=== PATIENT | male | born 2000 | race Caucasian/White ===

== ENCOUNTER 2021-06-28 14:00 | Emergency (ER) | payer OTHER, SELFPAY ==
[2021-06-28] VITALS (8 sets, daily range): BP systolic 118–134; BP diastolic 68–93; PULSE 51–66; RESP 14–18; TEMP 37; O2SAT 97–100
--- NOTE | ~2021-06-28 | XR_ITS ---
EXAMINATION: XR chest 2V EXAM DATE: 06/28/2021 14:21 INDICATION: Chest pain/SOB, sternal, left arm pain. TECHNIQUE: Frontal and lateral projections of the chest obtained and reviewed. There is no prior regina dy for comparison. FINDINGS: The lungs are clear. There are no pleural effusions. The cardiomediastinal silhouette is within normal limits. There is no pneumothorax suspected. The bones and soft tissues are unremarkab le. IMPRESSION: Normal chest x-ray exam. Reviewed, dictated and finalized at location A. [employer] IMPRESSION: Normal chest x-ray exam.
--- NOTE | 2021-06-28 14:03 | ECG_ITS ---
Measurements Intervals [place] Rate: 67 P: 48 WA: 153 QRS: 77 QRSD: 99 T: 42 QT: 355 QTc: 375 Interpretive Statements SINUS RHYTHM ST ELEVATION IN ANTEROLAT/INF LEADS, PROBABLY EARLY REPOLARIZATION BORDERLINE ECG Electronically Signed On 06-28-2021 15:24:37 [employer]ITION SERVICES MANAGER by Sabas Bae D.O.
[2021-06-28 14:42] LABS: Basophils Absolute Auto 0.1 K/mm3 (0.0-0.1); Basophils Percent Auto 0.6 % (0.2-1.2); Eosinophils Absolute Auto 0.1 K/mm3 (0-0.3); Eosinophils Percent Auto 0.7 % (0-4.4); Hematocrit 40.8 % (42.0-52.0); Hemoglobin 12.4 g/dL (14.0-18.0); Immature Granulocyte Absolute 0.08 K/mm3 (0.00-0.031); Immature Granulocyte Percent A 0.9 % (0-0.5); Lymphocytes Absolute Auto 2.52 K/mm3 (0.9-3.2); Lymphocytes Percent Auto 28.9 % (18.3-44.2); Mean Corpuscular HGB Conc 30.4 g/dl (32-36); Mean Corpuscular Hemoglobin 18.7 pg (26-34); Mean Corpuscular Volume 61.6 fl (80-100); Monocytes Absolute Auto 0.6 K/mm3 (0.1-0.6); Neutrophils Absolute Auto 5.4 K/mm3 (1.3-6.7); Neutrophils Percent Auto 61.9 % (45.5-73.1); Platelet Count Result 142 k/mm3 (150-375); Red Blood Count 6.62 M/mm3 (4.6-6.20); Red Cell Distribution Width 17.4 % (11.5-14.5); White Blood Count 8.7 K/mm3 (4.5-10.0)
[2021-06-28 15:37] LABS: Alanine Aminotransferase 14 U/L (4-50); Albumin Level 4.7 g/dL (3.5-5.1); Alkaline Phosphatase 64 U/L (38-126); Anion Gap 7 mmol/L (8-16); Aspartate Amino Transferase 22 U/L (17-59); Bilirubin,Total 0.8 mg/dL (0.2-1.3); Blood Urea Nitrogen 12 mg/dL (9-20); Calcium 9.7 mg/dL (8.4-10.2); Carbon Dioxide 28 mmol/L (22-30); Chloride 100 mmol/L (98-107); Estimated CRCL calculation 132 ml/min; Estimated Glomerular Filt Rate > 60; Glucose 94 mg/dL (65-110); Lipase 48 U/L (23-300); Potassium 4.2 mmol/L (3.4-5.0); Sodium 135 mmol/L (137-145)
[2021-06-28 15:48] LABS: Troponin I < 0.012 ng/mL (0.000-0.034)
[2021-06-28 18:48] LABS: INR 1.1; Prothrombin Time 14.3 Seconds (11.1-14.7)
[2021-06-28 18:49] LABS: Partial Thromboplastin Time 39.4 SECONDS (22.3-36.8)
[2021-06-28 18:58] LABS: Troponin I < 0.012 ng/mL (0.000-0.034)
[2021-06-28 19:32] LABS: D Dimer 0.27 ug/mL (<0.48)
--- NOTE | 2021-06-28 19:49 | ED.GENADULT ---
HPI - General Adult General Chief complaint: Chest Pain Stated complaint: Sent by doctor. Chest pain with inspriation. SOB. Time Seen by Provider: 06/28/21 17:51 Source: patient Mode of arrival: ambulatory Limitations: no limitations History of Present Illness HPI narrative: Patient is a 20-year-old male presenting with chief complaint of intermittent chest pain over the past 6 weeks. Patient reports that he noticed the pain more often when he is active. Patient reports that when it occurs it feels as if he cannot take a deep breath. Patient reports today it radiated into his jaw so his primary care told him to come to emergency department. Patient denies any syncopal episodes, palpitations, dizziness or neurological deficits. Patient denies history of PA or stroke. Patient reports that he does not have the pain presently. Patient denies any other symptoms or concerns. Related Data Home Medications Medication Instructions Recorded Confirmed No Home Medications 12/08/20 12/08/20 Allergies Allergy/AdvReac Type Severity Reaction Status Date / Time No Known Allergies Allergy Verified 06/28/21 17:58 Review of Systems Review of Systems: CONSTITUTIONAL: Denies fever, chills, or sweats. EYES: Denies visual changes, redness, or discharge. ENT: Denies rhinorrhea, congestion, sore throat, or otalgia. CARDIOVASCULAR: Reports intermittent chest pain denies palpitations, or edema. RESPIRATORY: Denies cough or dyspnea. GASTROINTESTINAL: Denies abdominal pain, nausea, vomiting, or diarrhea. GENITOURINARY: Denies dysuria or hematuria. SKIN: Denies rash or itching. MUSCULOSKELETAL: Denies back pain, joint pain, or myalgia. NEUROLOGIC: Denies headache, numbness, dizziness, or weakness. PSYCHIATRIC: Denies anxiety or depression. PMFSH Past Medical History Medical History Anxiety Family History Family History Father Asthma Diabetes mellitus Hypertension Mother Liver disease Social History Social History Smoking status: Never smoker Exam Narrative: GENERAL: Well-appearing, well-nourished, and in no acute distress. Does not appear to be in any discomfort or distress. HEAD: Normocephalic, atraumatic. EYES: PERRLA and EOMI. NECK: Supple. No adenopathy or masses. Range of motion intact. CHEST: Clear to auscultation. No respiratory distress. No wheezes rales or rhonchi HEART: Regular rate and rhythm. No murmur heard. Normal peripheral pulses. ABDOMEN: Soft, nontender, nondistended, normal active bowel sounds. EXTREMITIES: Normal range of motion. No edema. SKIN: Warm, dry, no rash. NEURO: No focal deficits. Alert and oriented x3. PSYCH: Normal mood and affect. Course Vital Signs Vital signs: Vital Signs Temperature 98.6 F 06/28/21 14:27 Pulse Rate 64 06/28/21 14:27 Respiratory Rate 17 06/28/21 14:27 Blood Pressure 125/93 H 06/28/21 14:27 Pulse Oximetry 97 06/28/21 14:27 Temperature 98.6 F 06/28/21 14:27 Pulse Rate 62 06/28/21 19:20 Respiratory Rate 18 06/28/21 19:20 Blood Pressure 119/79 06/28/21 19:20 Pulse Oximetry 100 06/28/21 19:20 Medical Decision Making MDM Narrative Medical decision making narrative: Patient is resting in bed comfortably. Patient is white blood cell count is normal. Patient troponin and D-dimer are normal. Patient EKG shows sinus rhythm with at 67 bpm. Patient states x-ray is normal. Patient admitted to follow-up with his primary care provider for medication management and possible cardiology referral. Patient chest pain seems atypical in his as well. Patient's vitals notable mainly he is not hypoxic, tachypneic or tachycardic. Patient has been offered Toradol for discomfort which he refused. Patient states that he is ready to be discharged home denies any other needs or con
== END 2021-06-28 20:25 | disposition home or self-care (01) ==
PROVIDERS: Emergency Provider Emergency Medicine; PCP Internal Medicine
DX: R07.89 Other chest pain (principal); R94.31 Abnormal electrocardiogram [ECG] [EKG]
CPT/HCPCS: 36415; 71046; 80053; 83690; 84484; 85025; 85055; 85380; 85610; 85730; 93005; 99284

== ENCOUNTER 2023-09-25 15:53 | Outpatient (CLI) | payer BC, SELFPAY ==
[2023-09-25 16:35] LABS: Basophils Percent Auto 0.4 % (0.2-1.2); Eosinophils Absolute Auto 0.1 K/mm3 (0-0.3); Eosinophils Percent Auto 0.6 % (0-4.4); Hematocrit 41.9 % (42.0-52.0); Hemoglobin 12.4 g/dL (14.0-18.0); Immature Granulocyte Absolute 0.11 K/mm3 (0.00-0.031); Immature Platelet Fraction Pct 18.1 % (0.9-11.2); Lymphocytes Absolute Auto 2.14 K/mm3 (0.9-3.2); Lymphocytes Percent Auto 20.1 % (18.3-44.2); Mean Corpuscular HGB Conc 29.6 g/dl (32-36); Mean Corpuscular Hemoglobin 18.4 pg (26-34); Mean Corpuscular Volume 62.3 fl (80-100); Monocytes Absolute Auto 0.6 K/mm3 (0.1-0.6); Monocytes Percent Auto 5.7 % (2.6-8.5); Neutrophils Absolute Auto 7.7 K/mm3 (1.3-6.7); Neutrophils Percent Auto 72.2 % (45.5-73.1); Platelet Count Result 139 k/mm3 (150-375); Red Blood Count 6.73 M/mm3 (4.6-6.20); Red Cell Distribution Width 17.8 % (11.5-14.5); White Blood Count 10.7 K/mm3 (4.5-10.0)
[2023-09-25 16:45] LABS: Alanine Aminotransferase 16 U/L (6-50); Albumin Level 4.4 g/dL (3.5-5.1); Alkaline Phosphatase 72 U/L (38-126); Anion Gap 10 mmol/L (8-16); Aspartate Amino Transferase 25 U/L (17-59); Blood Urea Nitrogen 15 mg/dL (9-20); Calcium 9.3 mg/dL (8.4-10.2); Carbon Dioxide 25 mmol/L (22-30); Chloride 105 mmol/L (98-107); Estimated Glomerular Filt Rate > 60; Glucose 91 mg/dL (65-110); Potassium 4.1 mmol/L (3.4-5.0); Sodium 140 mmol/L (137-145)
[2023-09-25 17:17] LABS: Iron 111 ug/dL (49-181)
[2023-09-25 17:36] LABS: Percent Iron Saturation 40 % (20-50)
[2023-09-25 17:44] LABS: Platelet Estimate Decreased (Adequate)
[2023-09-25 17:45] LABS: Anisocytosis 2+ (NORMAL); Hypochromasia 1+ (NORMAL); Schistocytes None Seen (NORMAL)
[2023-09-25 17:49] LABS: Folic Acid 11.8 ng/mL (2.76->20)
[2023-09-27 14:03] LABS: Alpha 1 Globulin 0.3 g/dL (0.2-0.3); Alpha 2 Globulin 0.6 g/dL (0.5-0.9); Beta 1 Globulin 0.3 g/dL (0.4-0.6); Gamma Globulin 0.7 g/dL (0.8-1.7); Protein, Total 6.3 g/dL (6.1-8.1)
== END 2023-09-25 15:54 | disposition home or self-care (01) ==
LOC: ANHLAB 15:54
PROVIDERS: PCP Physician Assistant; Visit Provider Internal Medicine
DX: Z00.00 Encounter for general adult medical examination without abnormal findings (principal); D64.9 Anemia, unspecified
CPT/HCPCS: 36415; 80053; 82607; 82746; 83540; 83550; 84155; 84165; 85025; 85055

== ENCOUNTER 2024-05-24 11:05 | Outpatient (CLI) | payer BC, SELFPAY ==
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
== END 2024-05-24 11:06 | disposition home or self-care (01) ==
LOC: ANHNEURO 11:06
PROVIDERS: PCP Nurse Practitioner; Visit Provider Psychiatry & Neurology Neurology
DX: Z87.828 Personal history of other (healed) physical injury and trauma (principal)
CPT/HCPCS: 95816